=== PATIENT | female | born 1970 | race Caucasian/White ===

== ENCOUNTER 2017-04-23 19:27 | Emergency (ER) | payer SELFPAY ==
[~2017-04-23] VITALS: Ht 157.5 cm; Wt 73.0 kg
[~2017-04-23 19:27] MED LIST: DULO30CA2 PO; MULT-1146 PO; cymbalta; muscle relaxant
[2017-04-23] MEDS ORDERED: SODIUM CHLORIDE 0.9% 1,000 ML IV SCH (23:06)
[2017-04-23] MEDS ORDERED: FAMOTIDINE 20MG/2ML VIAL IV ONE (23:15)
[2017-04-23] MEDS ORDERED: DIPHENHYDRAMINE 50MG/ML VIAL IV ONE (23:15)
[2017-04-23] MEDS ORDERED: METHYLPREDNISOLONE SOD SUCC 125 MG/2 ML VIAL IV ONE (23:15)
[2017-04-24 02:25] VITALS: BP 126/84
== END 2017-04-24 02:25 | disposition home or self-care (01) ==
LOC: ER 19:27
DX: T78.3XXA Angioneurotic edema, initial encounter (principal)
CPT/HCPCS: 96361; 96374; 96375; 99284; J1200; J2930; J3490; J7030